=== PATIENT | female | born 1960 | race Caucasian/White ===

== ENCOUNTER → 2025-06-28 | Day surgery (SDC) | payer OTHER ==
[2025-06-24 11:44] LABS: BASOPHILS % 0.5 % (0.0-1.0); EOSINOPHILS % 1.1 % (0.0-6.0); LYMPHOCYTES % 24.4 % (18.0-39.1); MONOCYTES % 9.5 % (4.4-11.3); NEUTROPHILS % 64.3 % (38.7-80.0); RED CELL DISTRIBUTION WIDTH 12.9 % (11.7-14.4)
[2025-06-24 12:12] LABS: EST GLOMERULAR FILTRATION RATE 96.0 ML/MIN (>=60)
[~2025-06-28] MED LIST: ACETAMINOPHEN 1000 MG/100 ML 100 ML IV ONE; B-121000 MC2; CEFAZOLIN SODIUM 2 GM ONE; CLONAZEPAM0.5 MG PO; CRANBERRY200 MG; D3-5000125 MCG; DEXAMETHASONE SOD PHOS INJ 4 MG/ML SDV ONE; ELDERBERRY350 MG; FENTANYL CITRATE/PF 100MCG/2 ML INJ ONE; FLONASE ALLERG9.9 ML INH; LACTATED RINGER'S 1,000 ML ONE; LIDOCAINE HCL 2% LOCAL INJ 5 ML SDV VIAL INJ ONE; ONDANSETRON HCL INJ 2MG/ML 2ML 2 MG/ML VIAL ONE; PROBIOTIC & AC1 EACH PO; PROPOFOL IV EMULSION 10 MG/ML 20 ML VIAL ONE; SODIUM CHLORIDE 0.9% 100 ML ONE; VITAMIN C500 MG PO
[2025-06-28 12:40] VITALS: TEMP 98
[2025-06-28 13:40] VITALS: BP 120/75; PULSE 78; RESP 18; O2SAT 98
== END | disposition home or self-care (01) ==
LOC: OR 10:45
PROVIDERS: ATTEND Orthopaedic Surgery
DX: S82.092A Other fracture of left patella, initial encounter for closed fracture (principal); S83.242A Other tear of medial meniscus, current injury, left knee, initial encounter; S83.282A Other tear of lateral meniscus, current injury, left knee, initial encounter; M94.262 Chondromalacia, left knee; M65.162 Other infective (teno)synovitis, left knee; M67.52 Plica syndrome, left knee; X58.XXXA Exposure to other specified factors, initial encounter; Z01.810 Encounter for preprocedural cardiovascular examination
CPT/HCPCS: 27599; 29873; 29880; 36415; 71046; 80053; 85025; 93005; C1713; J0131; J1100; J2003; J2405; J2704; J3010; J7050; J7121; 76000